=== PATIENT | female | born 1990 | race Caucasian/White ===

== ENCOUNTER 2020-07-22 15:54 | Inpatient (IN) | payer BC, SELFPAY ==
[2020-07-22] VITALS (14 sets, daily range): BP systolic 103–122; BP diastolic 60–79; PULSE 85–125; RESP 18–20; TEMP 36.4–36.6; BMI 28.2
--- OUTSIDE RECORDS SUMMARY | 2020-07-22 16:00 | XMS_ITS | Encounter Summary ---
:1990 Author Reason for Visit return OB visit Assessment and Plan 1. Routine care Discussion Note: None recorded.Patient educational handouts: No information available. Plan of Care Reminders Provider Appointments None ? ? recorded. Lab None ? ? recorded. Referral None ? ? recorded. Procedures None ? ? recorded. Surgeries None ? ? recorded. Imaging None ? ? recorded. Medications Name Start Date ? ? acyclovir 400 mg tablet ? TAKE 1 TABLET BY MOUTH THREE TIMES DAILY Boostrix Tdap 2.5 Lf unit-8 mcg-5 Lf/0.5 mL intramuscu lar syringe ? ADMINISTER 0.5ML IN THE MUSCLE DIRECTED Fluarix Quad 1431-7891 (PF) 60 mcg (15 mcg x 4)/0.5 mL IM syringe ? ADMINISTER 0.5ML IN THE MUSCLE DIRECTED valacyclovir 500 mg tablet ? Take 1 tablet twice a day by oral route. Notes: PNV/ IRON Medications Administered None recorded. Vitals Height Weight Blood Pressure 5 ft 4 in 166 lbs 112/66 mm[Hg] Results Lab Results None recorded. Allergies Code Code System Name Reaction Severity Onset Penicillins Rash ? ? Problems Name Status Onset Date Source ?
--- OUTSIDE RECORDS SUMMARY | 2020-07-22 16:00 | XMS_ITS ---
:1990 Author Care Team Providers Name Role Phone JOSE JESSICA MD Primary Care Provider [phone] Allergies Code Code System Name Reaction Severity Status Onset Penicillins Rash ? Active ? Medications Name Status Start Date Stop Date ? ? acyclovir 400 mg tablet Active ? Not avai lable TAKE 1 TABLET BY MOUTH THREE TIMES DAILY azithromycin 250 mg tablet Unknown ? Not a vailable Boostrix Tdap 2.5 Lf unit-8 mcg-5 Active ? Not available Lf/0.5 mL intramuscular syringe ciprofloxacin 250 mg tablet Unknown ? Not available TK 1 T PO Q 12 H FOR 3 DAYS DOK 100 mg capsule Completed ? 01/22/2019 doxycycline hyclate 100 mg capsule Completed ? 10/09/2019 TK 1 C PO BID FOR 7 DAYS escitalopram 10 mg tablet Completed ? 2018 escitalopram 5 mg tablet Completed ? 020 Estarylla 0.25 mg-35 mcg tablet Completed ? 01/14/2020 Fluarix Quad 3647-5671 (PF) 60 mcg (15 Active ? Not available mcg x 4)/0.5 mL IM syringe ibuprofen 600 mg tablet Completed ? 10/09/19 20 TAKE 1 TABLET BY MOUTH EVERY 6 HOURS NEEDED FOR CRAMPING Loestrin 24 Fe 1 mg-20 mcg (24)/75 mg Unknown ? Not available (4) tablet lorazepam 0.5 mg tablet Completed ? 06/18/19 18 Take 2 tablets twice a day by oral route as needed. Microgestin FE /20 (28) 1 mg-20 mcg (21)/75 mg (7) tablet Unkno wn ? Not available USE CONTINUOUSLY Minastrin 24 Fe 1 mg-20 mcg (24)/75 mg (4) chewable tablet Unkno wn ? Not available TAKE 1 TABLET BY MOUTH CONTINUOUSLY. Naso
--- OUTSIDE RECORDS SUMMARY | 2020-07-22 16:00 | XMS_ITS | Encounter Summary ---
:1990 Author Care Team Providers Name Role Phone Luis Fernando King MD Primary Care Provider [phone] Reason for Visit return OB visit Assessment and Plan 1. Routine care ? streptococcus group B, cul ture, vaginal or rectal 2. Genital herpes simplex type 2 ? valacyclovir 500 mg tablet Discussion Note: None recorded.Patient educational handouts: No information available. Plan of Care Reminders Provider Appointments None recorded. ? ? Lab Streptococcus Lab [facility] Group B, Culture, Vaginal 06/30/2020 or Rectal Referral None recorded. ? ? Procedures None recorded. ? ? Surgeries None recorded. ? ? Imaging None recorded. ? ? Medications Name Start Date ? ? acyclovir 400 mg tablet ? TAKE 1 TABLET BY MOUTH THREE TIMES DAILY Boostrix Tdap 2.5 Lf unit-8 mcg-5 Lf/0.5 mL intramuscu lar syringe ? ADMINISTER 0.5ML IN THE MUSCLE DIRECTED Fluarix Quad 9646-3103 (PF) 60 mcg (15 mcg x 4)/0.5 mL IM syringe ? ADMINISTER 0.5ML IN THE MUSCLE DIRECTED Prescription - Prior Authorization Request ? valacyclovir 500 mg tablet ? Take 1 tablet twice a day by oral route. until delivery Notes: PNV/ IRON Medications Administered None recorded. Vitals
--- OUTSIDE RECORDS SUMMARY | 2020-07-22 16:00 | XMS_ITS | Encounter Summary ---
:1990 Author Care Team Providers Name Role Phone Luis Fernando King MD Primary Care Provider [phone] Reason for Visit return OB visit Assessment [...] 0.5ML IN THE MUSCLE DIRECTED Fluarix Quad (PF) 60 mcg (15 mcg x 4)/0.5 mL IM syringe ? ADMINISTER 0.5ML IN THE MUSCLE DIRECTED Prescription - Prior Authorization Request ? valacyclovir 500 mg tablet ? Take 1 tablet twice a day by oral route. until delivery Notes: PNV/ IRON Medications Administered None recorded. Vitals Height Weight Blood Pressure 5 ft 4 in 164 lbs 116/68 mm[Hg] Results Lab Results None recorded. Allergies Code Code System Name Reaction Severity Onset
--- OUTSIDE RECORDS SUMMARY | 2020-07-22 16:00 | XMS_ITS | Encounter Summary ---
[...] 0.5ML IN THE MUSCLE DIRECTED Fluarix Quad 4504-7348 (PF) 60 mcg (15 mcg x 4)/0.5 mL IM syringe ? ADMINISTER 0.5ML IN THE MUSCLE DIRECTED valacyclovir 500 mg tablet ? Take 1 tablet twice a day by oral route. Notes: PNV/ IRON Medications Administered None recorded. Vitals Height Weight Blood Pressure 5 ft 4 in 167 lbs 106/74 mm[Hg] Results Lab Results None recorded. Allergies Code Code System Name Reaction Severity Onset Penicillins Rash ? ? Problems Name Status Onset Date Source ?
--- OUTSIDE RECORDS SUMMARY | 2020-07-22 16:00 | XMS_ITS ---
:1990 Author Care Team Providers Name Role Phone [facility] Primary Care Provider Unavailable Allergies Code Code System Name Reaction Severity [...] Completed ? 2018 escitalopram 5 mg tablet Active ? Not taz ilable TK 1 T PO QD Estarylla 0.25 mg-35 mcg tablet Active ? Not available TK 1 T PO QD CONTINUOUSLY Fluarix Quad 1295-5801 (PF) 60 mcg (15 Active ? Not [...] by oral route as needed. Microgestin FE 1/20 (28) 1 mg-20 mcg (21)/75 mg (7) tablet Unkno wn ? Not available USE CONTINUOUSLY Minastrin 24 Fe 1 mg-20 mcg (24)/75 mg (4) chewable tablet Unkno wn ?
--- OUTSIDE RECORDS SUMMARY | 2020-07-22 16:00 | XMS_ITS | Encounter Summary ---
:1990 Author Reason for Visit return OB visit Assessment and Plan None recorded.Discussion Note: None recorded.Patient educational handouts: No information [...] PNV/ IRON Medications Administered None recorded. Vitals Weight Blood Pressure 167 lbs 100/60 mm[Hg] Results Lab Results None recorded. Allergies Code Code System Name Reaction Severity Onset Penicillins Rash ? ? Problems Name Status Onset Date Source ? Active 01/14/2020 History Pharyngitis
--- OUTSIDE RECORDS SUMMARY | 2020-07-22 16:00 | XMS_ITS | Encounter Summary ---
:1990 Author Care Team Providers Name Role Phone Luis Fernando King MD Primary Care Provider [phone] Reason for Visit return OB visit Assessment [...] Weight Blood Pressure 5 ft 4 in 156 lbs 120/68 mm[Hg] Results Lab Results None recorded. Allergies Code Code System Name Reaction Severity Onset
--- OUTSIDE RECORDS SUMMARY | 2020-07-22 16:00 | XMS_ITS | Encounter Summary ---
:1990 Author Care Team Providers Name Role Phone Luis Fernando King MD Primary Care Provider [phone] Reason for Visit return OB visit Assessment [...] Weight Blood Pressure 5 ft 4 in 158 lbs 114/62 mm[Hg] Results Lab Results None recorded. Allergies Code Code System Name Reaction Severity Onset
[2020-07-22 16:30] LABS: Basophils Percent Auto 0.3 % (0.2-1.2); Eosinophils Absolute Auto 0.1 K/mm3 (0-0.3); Eosinophils Percent Auto 0.5 % (0-4.4); Hematocrit 39.4 % (37.0-47.0); Hemoglobin 13.6 g/dL (12.0-15.0); Lymphocytes Absolute Auto 1.85 K/mm3 (0.9-3.2); Mean Corpuscular HGB Conc 34.5 g/dl (32-36); Mean Corpuscular Hemoglobin 32.2 pg (26-34); Mean Corpuscular Volume 93.1 fl (80-100); Monocytes Absolute Auto 0.5 K/mm3 (0.1-0.6); Monocytes Percent Auto 4.8 % (2.6-8.5); Neutrophils Absolute Auto 7.8 K/mm3 (1.3-6.7); Neutrophils Percent Auto 75.4 % (45.5-73.1); Platelet Count Result 129 k/mm3 (150-375); Red Blood Count 4.23 M/mm3 (4.2-5.4); Red Cell Distribution Width 15.9 % (11.5-14.5); White Blood Count 10.3 K/mm3 (4.5-10.0)
[2020-07-22] MEDS: DINOPROSTONE 10 MG VAG INSERT VAGINAL (16:43)
--- NOTE | 2020-07-22 17:01 | LDADM ---
This patient, Pratik Dunne, was admitted to Labor/Delivery/Recovery 108 on 07/22/20 at 15:54. Plans for labor, pain management and were discussed with patient. Patient/family oriented to hospital policies and general routines including ID bracelet, bed and alarms, visiting hours, pain management, procedures, bathroom and other care routines, personal items, smoking policy, room service/diet and guest tray routines, infant security routines, and visiting hours. Patient/Family are encouraged to report perceived risks to care and to ask questions if they do not understand what they are told or what they should do. See OBIX for further documentation.
--- NOTE | 2020-07-22 17:22 | PC.NURSE ---
1700- informed of platelet count, no further orders.
[2020-07-23] VITALS (98 sets, daily range): BP systolic 78–151; BP diastolic 42–104; PULSE 51–156; RESP 16–20; TEMP 36.4–37.1; O2SAT 80–100
--- NOTE | 2020-07-23 04:13 | WPDANESEPP ---
Anes - Eval Pre Procedure Procedure: labor epidural Date/Time: 07/23/20 04:13 Surgeon: susana Preop Diagnosis: pain during labor Pre Op Diagnosis: Induction of Labor Patient Data Age: 30 Gender: F Height: 1.63 m Weight: 74.55 kg Last Vital Signs Temp 36.6 C 07/22/20 22:43 Pulse 92 07/23/20 02:02 Resp 18 07/22/20 22:43 BP 104/65 07/23/20 02:02 Allergies Allergy/AdvReac Type Severity Reaction Status Date / Time Penicillins Allergy Mild RASH,HIVES Verified 07/02/20 15:33 Home Medications Medication Instructions Recorded Confirmed Type acyclovir 400 mg PO TID 07/02/20 07/02/20 History ferrous sulfate 325 mg PO BID 07/02/20 07/02/20 History prenat.vits,lashanda,mqr-[id number]-bvlky 1 tablet PO DAILY 07/02/20 07/02/20 History [ #2] Laboratory Tests 07/22/20 07/22/20 07/22/20 16:11 16:11 16:11 WBC 10.3 K/mm3 H K/mm3 (4.5-10.0) RBC 4.23 M/mm3 M/mm3 (4.2-5.4) Hgb 13.6 g/dL g/dL (12.0-15.0) Hct 39.4 % % (37.0-47.0) MCV 93.1 fl fl (80-100) MCH 32.2 pg pg (26-34) MCHC 34.5 g/dl g/dl (32-36) RDW 15.9 % H % (11.5-14.5) Plt Count 129 k/mm3 L k/mm3 (150-375) MPV 12.0 fl H fl (7.4-10.4) Immature Gran % (Auto) 1.0 % H % (0-0.5) Neut % (Auto) 75.4 % H % (45.5-73.1) Lymph % (Auto) 18.0 % L % (18.3-44.2) [place] % (Auto) 4.8 % % (2.6-8.5) Eos % (Auto) 0.5 % % (0-4.4) Baso % (Auto) 0.3 % % (0.2-1.2) Lymph # (Auto) 1.85 K/mm3 K/mm3 (0.9-3.2) [place] # (Auto) 0.5 K/mm3 K/mm3 (0.1-0.6) Eos # (Auto) 0.1 K/mm3 K/mm3 (0-0.3) Baso # (Auto) 0.0 K/mm3 K/mm3 (0.0-0.1) Abs Immat Gran (auto) 0.10 K/mm3 H K/mm3 (0.00-0.031) Absolute Neuts (auto) 7.8 K/mm3 H K/mm3 (1.3-6.7) Absolute Nucleated RBC 0.0 K/mm3 K/mm3 (0.0-0.012) Nucleated RBC % 0.0 % % (0.0-0.2) RPR Pending Blood Type A Positive Antibody Screen Negative Patient hx anesthesia problems: none Family hx anesthesia problems: none [facility] Family History Family History (Updated 07/02/20 @ 15:36 by Tomasz Mathur RN) Grandparent Chronic obstructive pulmonary disease Social History Social History Smoking status: Former smoker Substance use: never Spiritual care concerns: No Exam Day of Procedure 07/23/20 04:13
[2020-07-23] MEDS: LACTATED RINGERS 1,000 ML 125 ML IV CONT ×3 (05:39→11:11)
[2020-07-23] MEDS: OXYTOCIN 30 UNITS/NS 500 ML 30 UNITS/500 ML BAG IV CONT (05:40)
[2020-07-23 09:32] LABS: Rapid Plasma Reagin Non-Reactive (NonReactive)
--- NOTE | 2020-07-23 11:59 | WPDHPUPDATE1 ---
History and Physical Update Update Date/Time: 07/23/20 11:59 History and Physical has been reviewed, including an updated exam of the patient. There are NO changes in the patient's condition. Risks, benefits, and alternatives have been discussed and questions answered. Patient agrees to proceed with procedure.
--- NOTE | 2020-07-23 12:00 | WPDOBADMIT ---
Obstetrics - Admit Note Admission Note: record reviewed. No pertinent additions to the history and/or any subsequent changes in the physical findings that are not consistent with the expected course of the were found. Additions to the history and/or subsequent changes in the physical findings follow. None.
--- NOTE | 2020-07-23 15:25 | PM.OBPRVD ---
OB - Delivery Note Procedure Route of delivery: Episiotomy description: None Laceration Description: None Specimen: No Quantitative Blood Loss (ml): 200 Anesthesia type: Epidural Disposition: floor Narrative: Patient prepped and draped in usual manner for this procedure. Maternal expulsive efforts readily delivered vertex and with further pushing the rest of baby was delivered without difficulty. Placenta delivered spontaneously as well. Cervix vagina vulva were inspected no lacerations or tears. At the at this point the procedure was considered terminated with immediate postoperative condition of mother and baby both excellent. [place] [facility] Weeks of gestation at delivery: 39 Infant gender: Male Weight (pounds): 9 Weight (ounces): 3 score one minute: 9 score five minutes: 9
[2020-07-23] MEDS: COSYNTROPIN 0.25 MG/ML VIAL 1 MG IV PUSH (15:29)
[2020-07-23] MEDS: OXYTOCIN 30 UNITS/NS 500 ML 30 UNITS/500 ML BAG 125 UNITS IV CONT (15:33)
[2020-07-23] MEDS: IBUPROFEN 600 MG TABLET PO (16:57)
[2020-07-23] MEDS: BENZOCAINE 20% AER SPR (*SP) 56 GM CAN 1 SPRAY TOPICAL (16:58)
[2020-07-23] MEDS: WITCH HAZEL 40 PADS 1 PAD TOPICAL (16:58)
--- NOTE | 2020-07-23 17:01 | PC.NURSE ---
Patient complaint of LOMELI with sitting. Patient states when sitting LOMELI is 9/10, when patient is laid back to supine position headache resolves and pain is 0/10. Anesthesia notified. Anesthesia will come evaluate the patient tomorrow (07/24).
--- NOTE | 2020-07-23 18:35 | OBPPTRN ---
Patient transferred to post room #279 via hospital bed. Support person present. Oriented to unit, room, information board, rooming in, admission packet and security measures. Discussed importance of remaining flat in bed as ordered until tomorrow. Patient and spouse verbalizes understanding.
[2020-07-24 04:30] VITALS: BP 116/67; PULSE 82; RESP 18; TEMP 36.3; O2SAT 100
[2020-07-24] MEDS: IBUPROFEN 600 MG TABLET PO ×2 (04:49→11:31)
[2020-07-24 05:03] LABS: Hematocrit 36.5 % (37.0-47.0); Hemoglobin 12.6 g/dL (12.0-15.0)
[2020-07-24 08:00] VITALS: BP 105/60; PULSE 87; RESP 15; TEMP 36.4; O2SAT 98
--- NOTE | 2020-07-24 08:52 | WPDANLDPN2 ---
Anes-Prog Note L&D Date/Time: 07/24/20 08:52 Comfortable throughout: labor and delivery Neuraxial method: epidural Epidural/Spinal procedure site: clean & non-tender Neuro status: Neuro function grossly intact. Cardiovascular status: normal Respiratory status: normal Airway patency: baseline Mental status: baseline Post-Op hydration status: normal Vital Signs: Last Vital Signs Temp 36.3 C L 07/24/20 04:30 Pulse 82 07/24/20 04:30 Resp 18 07/24/20 04:30 BP 116/67 07/24/20 04:30 Pulse Ox 100 07/24/20 04:30 Pain score (VAS): 2 I/O: Intake & Output 07/23/20 07/24/20 07/24/20 23:59 07:59 15:59 Intake Total 500 1500 Output Total 284 1900 Balance 216 -400 Post-procedural complaints: none Patient feedback: Patient satisfied with anesthetic care. Other findings: pt. reports up to bathroom multiple times last night with no headache
--- NOTE | 2020-07-24 09:17 | PM.OBDSVD ---
DS: Admitting Diagnosis Admitting Diagnosis Admitting Diagnosis: OB - DS: Summary OB Procedures : None OB Procedures Intrapartum: Spontaneous Vag Delivery OB Procedures: : None Time Spent with Patient Time attestation: Total time spent providing and/or coordinating discharge services: DS: Data Data Completed and Pending Labs on day of discharge: Labs from last 24 hours 07/24/20 07/22/20 04:50 16:11 Hgb 12.6 Hct 36.5 L RPR Non-reactive Discharge Plan Discharge Discharging Clinician: Prashant Alcantara Patient Disposition: Home, Self-Care Activity: as tolerated Diet: as tolerated Patient Instructions: Antibiotic Form Stand Alone Forms: General Discharge Information Follow-up/Referrals: Prashant Alcantara MD [Physician] - 3 Weeks Discharge Medications: New ibuprofen 600 mg Tablet 600 mg PO Q6H PRN (Reason: Cramping) Qty: 30 RF: 0 Continued ferrous sulfate 325 mg (65 mg iron) Tablet 325 mg PO BID RF: 0 #2 Tablet 1 tablet PO DAILY RF: 0 Discontinued acyclovir 400 mg Tablet 400 mg PO TID RF: 0 Date of admission: 07/22/20 15:54 Primary Care Provider: Christine,Luis Fernando Edmonds Admitting Provider: Prashant Alcantara Attending physician on admission: Prashant Alcantara Condition: Stable
[2020-07-24 12:00] VITALS: BP 111/63; PULSE 76; RESP 15; TEMP 36.5; O2SAT 100
[2020-07-24 16:34] VITALS: BP 109/70; PULSE 81; RESP 15; TEMP 36.4; O2SAT 97
--- NOTE | 2020-07-24 17:16 | PC.NURSE ---
Discharged mother and to awaiting vehicle. All discharge instructions given.
[2020-07-26 09:41] VITALS: BP 117/80; PULSE 83; RESP 20; TEMP 36.7; O2SAT 100
== END 2020-07-24 17:10 | disposition home or self-care (01) | DRG 807 ==
LOC: ANHLDR 07-23 09:45 → ANHOB2 07-23 18:46
PROVIDERS: Admitting Provider Obstetrics & Gynecology; PCP Internal Medicine; Visit Provider Obstetrics & Gynecology
DX: O36.8330 Maternal care for abnormalities of the fetal heart rate or rhythm, third trimester, not applicable or unspecified (principal); Z37.0 Single live birth; Z3A.39 39 weeks gestation of pregnancy
CPT/HCPCS: 36415; 85014; 85018; 85025; 86592; 86850; 86900; 86901; A9270; J0834; J2590; J2795; J7120

== ENCOUNTER 2023-07-23 04:16 | Emergency (ER) | payer BC, SELFPAY ==
[2023-07-23 04:24] VITALS: BP 125/81; PULSE 117; RESP 18; RESP 20; TEMP 36.7; O2SAT 100
[2023-07-23 04:40] VITALS: PULSE 107
[2023-07-23 05:07] LABS: Influenza A QL RT-PCR Positive (Negative); Influenza B QL RT-PCR Negative (Negative); RSV RNA, RT-PCR Negative (Negative); SARS-CoV-2 RNA PCR Negative (Negative)
[2023-07-23] MEDS: SODIUM CHLORIDE 0.9% IV 1,000 ML 999 ML IV CONT (05:11)
[2023-07-23] MEDS: diphenhydrAMINE HCl INJ 50 MG/ML VIAL IV PUSH (05:13)
[2023-07-23] MEDS: METOCLOPRAMIDE HCL INJ 10 MG/2 ML VIAL IV PUSH (05:16)
--- NOTE | 2023-07-23 05:19 | ED.GENADULT ---
HPI - General Adult General Chief complaint: Unspecified Stated complaint: headache, cough, congestion, nausea Time Seen by Provider: 07/23/23 04:29 History of Present Illness HPI narrative: Patient 33-year-old female who presents to emergency department with chief complaint of cough congestion fever nausea and headache. Patient reports that daughter was diagnosed with flu a and reports that her symptoms started approximately 1 day ago patient reports she took Tylenol cold and flu around 2:00 a.m. and has had no improvement Related Data Home Medications Medication Instructions Recorded Confirmed ferrous sulfate 325 mg (65 mg 325 mg PO BID 07/02/20 07/02/20 iron) tablet prenat.vits,lashanda,[id number]-[id number] 1 tablet PO DAILY 07/02/20 07/02/20 Allergies Allergy/AdvReac Type Severity Reaction Status Date / Time Penicillins Allergy Mild RASH,HIVES Verified 07/23/23 04:25 Review of Systems Review of Systems: A 10 system review of systems was completed on the patient and is negative except for what is stated in the HPI. Nursing and ancillary documentation was reviewed. [facility] Family History Family History Grandparent Chronic obstructive pulmonary disease Social History Social History Smoking status: Former smoker Substance use: never Spiritual care concerns: No Exam Narrative: GENERAL: Well-appearing, well-nourished, and in no acute distress. HEAD: Normocephalic, atraumatic. EYES: PERRLA and EOMI. ENT: Nares clear, no rhinorrhea or epistaxis. Mucous membranes moist. NECK: Supple. No nuchal rigidity CHEST: Clear to auscultation. No respiratory distress. HEART: Regular rate and rhythm. No murmur heard. Normal peripheral pulses. ABDOMEN: Soft, nontender, nondistended, normal active bowel sounds. EXTREMITIES: Normal range of motion. No edema. SKIN: Warm, dry, no rash. NEURO: No focal deficits. Alert and oriented x3. PSYCH: Normal mood and affect. Course Vital Signs Vital signs: Vital Signs Temperature 36.7 C 07/23/23 04:24 Pulse Rate 117 H 07/23/23 04:24 Respiratory Rate 18 07/23/23 04:24 Blood Pressure 125/81 07/23/23 04:24 Pulse Oximetry 100 07/23/23 04:24 Temperature 36.7 C 07/23/23 04:24 Pulse Rate 107 H 07/23/23 04:40 Respiratory Rate 20 07/23/23 04:24 Blood Pressure 125/81 07/23/23 04:24 Pulse Oximetry 100 07/23/23 04:24 Medical Decision Making MDM Narrative Medical decision making narrative: Differential diagnosis includes influenza, COVID, RSV, Patient was positive for influenza A The patient was given IV fluids antiemetics Benadryl and Toradol Vital Signs Vital Signs: Vital Signs Temperature 36.7 C 07/23/23 04:24 Pulse Rate 117 H 07/23/23 04:24 Respiratory Rate 18 07/23/23 04:24 Blood Pressure 125/81 07/23/23 04:24 Pulse Oximetry 100 07/23/23 04:24 Temperature 36.7 C 07/23/23 04:24 Pulse Rate 107 H 07/23/23 04:40 Respiratory Rate 20 07/23/23 04:24 Blood Pressure 125/81 07/23/23 04:24 Pulse Oximetry 100 07/23/23 04:24 Lab Data Labs: Lab Results 07/23/23 Range/Units 04:23 Influenza A (RT-PCR) Positive A (Negative) Influenza B (RT-PCR) Negative (Negative) RSV (RT-PCR) Negative (Negative) SARS-CoV-2 RNA (RT-PCR) Negative (Negative) Discharge Plan Discharge Clinical Impression: Influenza A, Acute upper respiratory infection Patient Disposition: Home, Self-Care Condition: Stable Instructions: Antibiotic Form, Influenza (ED), Upper Respiratory Infection (ED), Acute Headache (ED) Prescriptions: New oseltamivir [Tamiflu] 75 mg capsule 75 mg PO Q12H 5 Days Qty: 10 0RF ondansetron 4 mg tablet,disintegrating 4 mg PO Q8H PRN (Reason: nausea and vomiting) Qty: 10 0RF No Action ferrous sulfate 325 mg (65 mg i
[2023-07-23] MEDS: KETOROLAC 15 MG/ML VIAL (*BKC) IV PUSH (05:20)
[2023-07-23 05:44] VITALS: BP 113/75; PULSE 101; RESP 16; O2SAT 99
[2023-07-23 06:01] VITALS: BP 113/75
== END 2023-07-23 06:01 | disposition home or self-care (01) ==
LOC: ANHED 05:52
PROVIDERS: Emergency Provider Emergency Medicine; PCP Internal Medicine
DX: J10.1 Influenza due to other identified influenza virus with other respiratory manifestations (principal); Z20.822 Contact with and (suspected) exposure to COVID-19; Z87.891 Personal history of nicotine dependence
CPT/HCPCS: 87637; 96361; 96374; 96375; 99284; J1200; J1885; J2765; J7030